=== PATIENT | male | born 1975 | race Caucasian/White ===

== ENCOUNTER 2024-09-03 11:46 | Emergency (ER) | payer OTHER ==
[2024-09-03 13:49] LABS: BASOPHILS ABSOLUTE AUTO 0.04 K/uL (0.00-0.20); BASOPHILS PERCENT AUTO 0.5 % (0.0-1.0); EOSINOPHILS ABSOLUTE AUTO 0.15 K/uL (0.00-0.45); EOSINOPHILS PERCENT AUTO 1.9 % (0.0-6.0); HEMATOCRIT 44.9 % (42.0-52.0); HEMOGLOBIN 15.4 g/dL (14.0-18.0); IMMATURE GRAN ABSOLUTE AUTO 0.02 K/uL (0.00-0.05); IMMATURE GRAN PERCENT AUTO 0.2 % (0.0-0.4); LYMPHOCYTES ABSOLUTE AUTO 1.81 K/uL (1.00-4.80); LYMPHOCYTES PERCENT AUTO 22.5 % (24.0-44.0); MEAN CORPUSCULAR HEMOGLOBIN 30.7 pg (28.0-32.0); MEAN CORPUSCULAR HGB CONC 34.3 g/dL (32.0-36.0); MEAN CORPUSCULAR VOLUME 89.4 fL (83.0-99.0); MEAN PLATELET VOLUME 8.7 fL (9.4-12.4); MONOCYTES ABSOLUTE AUTO 0.55 K/uL (0.00-0.80); MONOCYTES PERCENT AUTO 6.8 % (0.0-8.0); NEUTROPHILS ABSOLUTE AUTO 5.49 K/uL (1.80-7.70); NEUTROPHILS PERCENT AUTO 68.1 % (41.0-71.0); PLATELET COUNT,PLT 269 K/uL (150-400); RED BLOOD CELL COUNT 5.02 M/uL (4.52-5.90); WHITE BLOOD CELL COUNT,WBC 8.06 K/uL (3.9-11.3)
[2024-09-03 14:15] LABS: A/G RATIO 1.1 (0.9-1.6); BILIRUBIN TOTAL 0.6 mg/dL (0.2-1.0); CALCIUM 8.5 mg/dL (8.5-10.1); CARBON DIOXIDE,CO2 24.2 mmol/L (21.0-32.0); CREATININE 0.9 mg/dL (0.8-1.3); EST CRCL DRUG DOSING (CG) 101.47 mL/min; POTASSIUM,K 3.7 mmol/L (3.5-5.1); PROTEIN TOTAL,TP 7.6 g/dL (6.4-8.2)
[2024-09-03] MEDS: Iopamidol 755 MG/ML 500 ML Multipack Bottle IVPUSH STA (17:42)
[2024-09-03] MEDS: diphenhydrAMINE 50 MG/ML SDV IVPUSH ONE (17:48)
[2024-09-03] MEDS: Ketorolac 30 MG/ML SDV IVPUSH ONE (17:52)
[2024-09-03] MEDS: Famotidine 20 MG/2 ML SDV IVPUSH ONE (17:53)
[2024-09-03] MEDS: Sodium Chloride 0.9% 1,000 ML IV ONE (17:56)
== END 2024-09-03 19:43 | disposition home or self-care (01) ==
LOC: MW.ED 11:46
DX: R07.9 Chest pain, unspecified (principal); R21 Rash and other nonspecific skin eruption; R16.1 Splenomegaly, not elsewhere classified; I10 Essential (primary) hypertension; Z79.899 Other long term (current) drug therapy
CPT/HCPCS: 36415; 70450; 71045; 71260; 80053; 83880; 84484; 85025; 93005; 96361; 96374; 96375; 99285; J1200; J1885; J7030; Q9967; 93010; 99284